=== PATIENT | male | born 1990 | race Two or more races ===

== ENCOUNTER 2024-07-31 09:38 | Outpatient (AMB) | payer OTHER, SELFPAY ==
[2024-07-31 09:42] VITALS: BP 154/104; PULSE 92; RESP 18; TEMP 37.3; O2SAT 99; BMI 38.1
--- NOTE | 2024-07-31 09:42 | MHC.PC.OV ---
Vital Signs 07/31/24 09:42 07/31/24 10:36 Height 5 ft 11 in Weight 273 lb 3.2 oz BMI 38.1 BP 154/104 H 150/102 H Blood Pressure Location Lt brachial Lt brachial Position Sitting Sitting Respiration 18 Pulse 92 88 Pulse Source Pulse Oximeter Auscultation Temp 99.2 F Temp Source Oral Pulse Oximetry (%) 99 Oxygen Delivery Method Room Air Intake Visit Reasons: establish care Intake Note: Patient is a new patient here to establish care. Patient reports that he has not had a primary care physician in 15+ years; Last PCP was in [place]. Medical records have not been requested and have not been received. Code Inspector Required: No Accompanied by: Self / Same As Patient Allergies No Known Allergies Allergy (Verified 07/31/24 10:22) Medication List - Last Reconciled 07/31/24 by HEATHER Whitman No Known Home Meds Tobacco use date assessed: 07/31/24 Dental Screening Dental Screen Date: 07/31/24 Did you have a dental visit in the last 12 months?: Yes Did you have a dental problem in the last 6 months where you did not have access to dental care?: No Was dental information given to patient?: Patient has dentist HPI establish care HPI Details Previous PCP: [facility], over 10 years Last visit: Last PE:same Specialist:no OBGYN:n/a Past medical history:Elevated blood pressure, varicose veins in both legs Medications:no Family HX: diabetes maternal grandmother, mother-varicose veins Problem: The patient is a 34-year-old male presenting with concerns regarding hypertension and varicose veins. He reports that his blood pressure was noted to be significantly elevated a few years ago during a COVID-19 testing visit. He has managed to lose about 25 pounds over the past year, but his blood pressure status has not been reassessed since. Regarding his varicose veins, they are situated bilaterally in the legs. The patient describes a feeling of heaviness and tiredness in the legs, notably at the end of the day, though he does not report any pain directly related to the veins. He discloses a familial history of varicose veins through his mother, which he suspects may have a genetic linkage. Additionally, the patient mentions intermittent dermatological issues, specifically eruptions on the fingers that do not itch or hurt, possibly provoked by dietary factors or exposure to certain soaps. Regarding personal and family history, there is mention of maternal history of diabetes. Previously, the patient also suffered from obstructive sleep apnea symptoms, which have improved following weight reduction, though mild snoring persists. [facility] Medical History (Updated 08/06/24 @ 07:52 by HEATHER Whitman) Varicose veins of both lower extremities Surgical History Hx of adenoidectomy Family History Mother No problems noted. Father No problems noted. Son No problems noted. Son No problems noted. 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 1. Little interest or pleasure in doing things: not at all 2. Feeling down, depressed, or hopeless: not at all 3. Trouble falling or staying asleep, or sleeping too much: not at all 4. Feeling tired or having little energy: not at all 5. Poor appetite or overeating: not at all 6. Feeling bad about yourself - or that you are a failure or have let yourself or your family down: not at all 7. Trouble concentrating on things, such as reading the newspaper or watching television: not at all 8. Moving or speaking so slowly that other people could have noticed. Or the opposite - being so fidgety or restless that you have been moving around a lot more than usual: not at all 9. Thoughts that you would be better off or of hurting yourself in some way: not at all Total score: 0 Depression Screening Interpretation: Negative Depression Screening Done: Yes 14388 - PHQ-9 Billing: Yes Source: Developed by Drs. Santiago Walker, Yoko Lainez, Fco Weir and colleagues, with an educational rusty from [employer]. Thrive Questionnaire Date Thrive assessed: 07/31/24 I am a: Patient What is your living situation today?: I have a steady place to live Within the past 12 months, did the food you bought not last and you didn't have the money to get more?: Sometimes True Within the past 12 months, did you worry whether your food would run out before you got money to buy more?: Sometimes True Do you have trouble paying for medicines?: I choose not to answer this question Do you have trouble getting transportation to medical appointments?: No Do you have trouble paying your heating and electricity bill?: No Do you have trouble taking care of your child, family member or friend?: No Do you have trouble with day-to-day activities such as bathing, preparing meals, shopping, managing finances, etc.?: No Are you currently unemployed and looking for a job?: No Are you interested in more education?: No Please select the resources that you would like help with: None Currently or been in a relationship where the following occur: No concerns reported THRIVE Score: 2 AUDIT C Alcohol Use Questionnaire (AUDIT-C) 1. How often do you have a drink containing alcohol?: Monthly or less 2. How many drinks containing alcohol do you have on a typical day when you are drinking?: 1 or 2 3. How often do you have six or more drinks on one occasion?: Never Total Score: 1 Score Reviewed/Action Taken: No SCOTTIE-7 AMB Questionnaire SCOTTIE-7 Date SCOTTIE - 7 assessed: 07/31/24 Feeling nervous, anxious, or on edge: 0 = Not at all Not being able to stop or control worryin = Not at all Worrying too much about different things: 0 = Not at all Trouble relaxin = Not at all Being so restless that it is hard to sit still: 0 = Not at all Becoming easily annoyed or irritable: 0 = Not at all Feeling afraid as if something awful might happen: 0 = Not at all Total SCOTTIE-7 score (0-4 normal; 5-9 mild; 10-14 moderate; 15-21 severe): 0 Source: Developed by Drs. Santiago Walker, Yoko Lainez, Fco Weir and colleagues, with an educational rusty from [employer]. SCOTTIE-7 Assessment Billing SCOTTIE-7 Assessment Tool: SCOTTIE-7 Assessment 37804 Review of Systems Const Details: - Cardiovascular: Reports history of elevated blood pressure, denies chest pain or palpitations. - Respiratory: Denies shortness of breath. - Dermatological: Reports occasional non-painful, non-itchy eruptions on fingers. - Neurological: Denies waking up gasping for air, reports easy sleep onset. - Musculoskeletal: Denies leg pain associated with varicose veins. - Gastrointestinal: Denies heartburn and abdominal pain. Denies headache(s) Eyes Denies loss of vision ENT Denies vertigo, Denies dizziness, Denies headache(s) and Denies sore throat Card Denies chest pain, Denies leg edema and Denies lightheadedness Resp Denies cough, Denies hemoptysis and Denies wheezing GI Denies abdominal pain, Denies melena, Denies constipation, Denies diarrhea and Denies vomiting Denies dysuria, Denies urinary frequency and Denies urinary urgency Musc Denies arthralgias, Denies joint swelling, Denies numbness and Denies tingling Skin/Breast Reports other (Current bumps to fingers, none painful or itchy) Neuro Denies Abnormal speech present, Denies behavioral changes, Denies vertigo, Denies dizziness, Denies headache(s), Denies loss of vision, Denies memory loss, Denies numbness and Denies tingling Psych Denies anxiety, Denies behavioral changes, Denies depression, Denies memory loss and Denies panic attacks Ankur/Lymph Denies easy bleeding and Denies easy bruising Aller/Immun Denies wheezing Physical exam (Primary Care) Vital Signs: Last Vital Signs Temp 99.2 F 07/31/24 09:42 Pulse 88 07/31/24 10:36 Resp 18 07/31/24 09:42 BP 150/102 H 07/31/24 10:36 Pulse Ox 99 07/31/24 09:42 Oxygen Delivery Method Room Air 07/31/24 09:42 BMI result Body Mass Index 38.1 Tobacco/Smoking Status: Tobacco use Status Tobacco use date assessed 07/31/24 07/31/24 10:01 Patient Tobacco Use Status Former Tobacco user 07/31/24 10:01 e-Cigarette/Vaping Use Never Used 07/31/24 10:01 PHQ-9: PHQ-9 Score PHQ-9: Total score 0 07/31/24 10:41 Depression Screening Interpretation: Negative Thrive Assessment: Date of Thrive Assessment Date Thrive assessed 07/31/24 07/31/24 10:01 Currently or been in a relationship where the following occur: No concerns reported Const General: healthy appearing, no acute distress, alert and awake Nutritional Appearance: well nourished Orientation/consciousness: oriented to person, oriented to place and oriented to time HENMT Ears: TM's normal bilaterally General nose exam: Normal nasal mucous membranes and turbinates present Eyes Conjunctivae: conjunctivae normal Sclerae: sclerae normal Pupils: Equal, round and reactive pupils present Neck Neck: Yes no lymphadenopathy and Yes no JVD Thyroid: Thyroid normal Carotids: no bruits Resp Effort & Inspection: normal respiratory effort and not tachypneic Auscultation: no crackles, no rales, no rhonchi and no wheezes Cardio Rate: regular rate Rhythm: regular rhythm Heart sounds: no murmurs and normal S1 and S2 GI Palpation (GI): Soft to palpation, nontender, no hepatomegaly and no splenomegaly Auscultation: normal bowel sounds Skin General skin exam: no rashes or lesions noted and dry skin Neuro General: oriented to person, oriented to place and oriented to time Cranial nerves: Yes Equal, round and reactive pupils present Speech: No Abnormal speech present Gait exam (Neuro): Normal gait present Motor exam (neuro): no tremor noted Extrem Right upper extremity: full ROM Left upper extremity: full ROM Right lower extremity: full ROM; no edema Left lower extremity: full ROM; no edema Psych Mental Status: mental status grossly normal Speech and movement: Normal speech and movement present Affect: normal affect Attitude: cooperative Thought process: Normal thought process present Coding Level of Care Code New Pt Level 4 (78483) Diagnoses Elevated blood pressure reading R03.0 Ringworm of body B35.4 Varicose veins of both lower extremities, unspecified whether complicated I83.93 Varicose vein complication: unspecified Additional Codes SCOTTIE-7 Assessment Billing - SCOTTIE-7 Assessment Tool: SCOTTIE-7 Assessment 12818 ([id number]) PHQ-9 - 36605 - PHQ-9 Billing: Yes ([id number]) Time Spent (min) 39 Assessment & Plan Assessment & Plan (1) Elevated blood pressure reading: Code(s): R03.0 - Elevated blood-pressure reading, without diagnosis of hypertension Category: Medical Plan: Patient blood pressure is in the 150s/100s in office. Amlodipine 10 mg started, the patient to return in 1 week for blood pressure check,, nurse visit Encouraged dash diet (2) Ringworm of body: Code(s): B35.4 - Tinea corporis Category: Medical Plan: Ringworm noted to Right thumb dorsal area. Clotrimazole 1% ordered (3) Varicose veins of both lower extremities: Code(s): I83.93 - Asymptomatic varicose veins of bilateral lower extremities Category: Medical Qualifiers: Varicose vein complication: unspecified Qualified Code(s): I83.93 - Asymptomatic varicose veins of bilateral lower extremities Plan: We will continue to monitor. If it becomes bothersome, we will refer the patient to vascular Orders: Orders Complete Blood Count Auto Diff 07/31/24 Z00.00 - Encounter for general adult medical examination without abnormal findings Comprehensive [place]. Panel Fast 07/31/24 Z00. - Encounter for general adult medical examination without abnormal findings TSH reflex Free T4 07/31/2400. - Encounter for general adult medical examination without abnormal findings UA CC w/rflx Micro + Cult 07/31/24 Z00. - Encounter for general adult medical examination without abnormal findings Vitamin D 25-OH Total 07/31/24 Z00. - Encounter for general adult medical examination without abnormal findings Lipid Panel 07/31/24 Z00.00 - Encounter for general adult medical examination without abnormal findings Glucose Fasting 07/31/24 Z00.00 - Encounter for general adult medical examination without abnormal findings Medications: New amlodipine 10 mg PO DAILY 30 tabs 2RF clotrimazole 1% (Clotrimazole AF) 1 appl topical BID 2 weeks 15 grams 0RF B35.4 - Tinea corporis Patient Instructions: - Purchase a home blood pressure monitor and check your blood pressure regularly. - Follow a low-cholesterol diet, reducing foods like egg yolks. - Monitor leg veins and elevate your legs when sitting. - Use an [id number] cream for skin eruptions unless instructed otherwise. - Maintain weight management efforts and follow dietary recommendations. - Seek medical attention if symptoms worsen or new symptoms appear.
[2024-07-31 10:36] VITALS: BP 150/102; PULSE 88
== END 2024-07-31 11:02 | disposition home or self-care (01) ==
DX: R03.0 Elevated blood-pressure reading, without diagnosis of hypertension (principal); B35.4 Tinea corporis; I83.93 Asymptomatic varicose veins of bilateral lower extremities

== ENCOUNTER → 2024-07-31 09:38 | Outpatient (BNVA) | payer OTHER, SELFPAY | DX: R03.0 Elevated blood-pressure reading, without diagnosis of hypertension (principal); I83.93 Asymptomatic varicose veins of bilateral lower extremities; B35.4 Tinea corporis | CPT/HCPCS: 96127; 99202 ==